=== PATIENT | female | born 1965 | race Two or more races ===

== ENCOUNTER 2024-04-07 06:19 | Day surgery (SDC) | payer BC, OTHER ==
[~2024-04-07] VITALS: Ht 167.6 cm; Wt 64.4 kg
[~2024-04-07 06:19] MED LIST: HYDR-2792 PO; HYDR25TA5 GT; METO5TAB67 PO; PANT40TA2 PO
[2024-04-07] MEDS: HEPARIN SODIUM (PORCINE) 5000 UNITS/ML 1ML VIAL SC ONE (07:00)
[2024-04-07] MEDS: BUPIVACAINE 0.5% MPF INJ 30ML SDV IJ ONE (07:41)
[2024-04-07] MEDS: ceFAZolin 2 GM/D5W100ml 100 ML IV ONE (07:41)
[2024-04-07] MEDS: LIDOCAINE 1% HCL (LOCAL ANESTH.) INJ 20ML MDV ONE (07:41)
[2024-04-07] MEDS ORDERED: HEPARIN SODIUM (PORCINE) 5000 UNITS/ML 1ML VIAL ONE (07:45)
[2024-04-07] MEDS ORDERED: PROPOFOL 10 MG/ML 20 ML IV ONE (07:55)
[2024-04-07] MEDS ORDERED: ONDANSETRON HCL 4 MG/2 ML VIAL ONE (07:55)
[2024-04-07] MEDS ORDERED: DexAMETHasone SOD PHOS 10MG/1ML VIAL INJ ONE (07:55)
[2024-04-07] MEDS ORDERED: LIDOCAINE 1% INJ PF 5ML AMP ONE (07:55)
[2024-04-07] MEDS ORDERED: GLYCOPYRROLATE 0.2 MG/ML 1ML VIAL ONE (07:55)
[2024-04-07] MEDS ORDERED: KETOROLAC TROMETH 30 MG/ML 1ML VIAL ONE (07:55)
[2024-04-07] MEDS ORDERED: KETAMINE 50mg/ML 1ml syringe ONE (08:12)
[2024-04-07] MEDS: HEPARIN 1,000 UNITS/ml 1ML VIAL ONE (08:15)
[2024-04-07] MEDS: HEPARIN SODIUM (PORCINE) 5000 UNITS/ML 1ML VIAL ONE (08:20)
[2024-04-07] MEDS ORDERED: LIDOCAINE 1% HCL (LOCAL ANESTH.) INJ 20ML MDV ONE (08:23)
[2024-04-07 08:36] VITALS: TEMP 97; O2SAT 97
[2024-04-07] MEDS ORDERED: ePHEDrine SULFATE 50 MG/ML AMP IV PRN (08:45)
[2024-04-07] MEDS ORDERED: HYDROmorphone HCL 2 MG/ML VL/or syr IV PRN (08:45)
[2024-04-07] MEDS ORDERED: fentaNYL CITRATE 100 MCG/2 ML VL IV PRN (08:45)
[2024-04-07] MEDS ORDERED: FLUMAZENIL 0.1 MG/ML INJ 10ML MDV IV PRN (08:45)
[2024-04-07] MEDS ORDERED: hydrALAZINE HCL 20 MG/ML VL IV PRN (08:45)
[2024-04-07] MEDS ORDERED: ONDANSETRON HCL 4 MG/2 ML VIAL IV PRN (08:45)
[2024-04-07] MEDS ORDERED: NALOXONE HCL 0.4 MG/ML VIAL IV PRN (08:45)
--- NOTE | 2024-04-07 09:10 | DVH ---
CHEST RADIOGRAPH Indication:RIJV portacath placement Technique: Single frontal view of the chest was obtained COMPARISON: None FINDINGS: Lines and Tubes: Right chest port in satisfactory position. Lungs: Clear Pleura: No effusion. No pneumothorax. Cardiomediastinal contours: Unremarkable Bones: Unremarkable IMPRESSION: No acute disease.
[2024-04-07 09:21] VITALS: BP 167/82; PULSE 71; RESP 14; O2SAT 99
--- NOTE | 2024-04-07 11:28 | DVHOP ---
DATE OF SURGERY: 04/07/2024 PREOPERATIVE DIAGNOSIS: Pancreatic cancer. POSTOPERATIVE DIAGNOSIS: Pancreatic cancer. PROCEDURES: * Right cervical ultrasound interpretation. * Ultrasound-guided right internal jugular vein port-a-cath placement. SURGEON: Jonathan Gutierrez MD COSMETOLOGY PROFESSOR: None. NURSE COOK MANAGER: MONTEZ Gaines. ANESTHESIA: Local and sedation. INTRAOPERATIVE FINDINGS: * Fully patent compressible non-thrombosed right internal jugular vein. * Excellent functioning port-a-cath. No cervical lymphadenopathy. Carotid artery not assessed given it was beyond the scope of the procedure. ESTIMATED BLOOD LOSS: Minimal. INTRAVENOUS FLUIDS: Per anesthesia charting. URINE OUTPUT: Not recorded given Stanford catheter was not inserted. DRAINS: None. IMPLANTS: 8-Czech port-a-cath. COMPLICATIONS: None. Procedure well tolerated and transferred to recovery room in stable condition. INDICATIONS FOR PROCEDURE: The patient is an unfortunate 58-year-old female with recent diagnosis of pancreatic cancer recommended to undergo adjuvant chemoradiation therapy. For this reason, she was recommended to undergo an ultrasound-guided port-a-cath placement. The procedure risks and benefits were explained in a detailed and extensive fashion. All questions were answered. She understood and agreed to proceed. DESCRIPTION OF PROCEDURE: The patient was taken to the operating room. She was placed in the dorsal decubitus position on the operating room table. Once adequate anesthesia was achieved, the right cervical region was assessed under B-mode as well as duplex ultrasound mode. The right internal jugular vein exhibited excellent retrograde flow without evidence of thrombosis and excellent compressibility. There was no cervical lymphadenopathy. The carotid artery was not assessed given it was beyond the scope of the procedure. An 8-Czech power-injectable port-a-cath was selected over the [id number] since these were the only two [id number] available. The cervicothoracic region was widely prepped and draped in usual sterile fashion. The right arm was tucked to the patient's side with adequate positioning as well as padding to prevent any potential injuries. The patient's head was placed on a donut and the head of the bed was extended paying careful attention not to over-extend the neck. The patient's head was rotated towards her left side appropriately exposing the right cervical region. The cervicothoracic region was widely prepped and draped in usual sterile fashion. The patient had received prophylactic antibiotics as well as prophylactic heparin. My attention was directed to the cervical region. Using a sterilely draped ultrasound probe, the right cervical region was assessed under B-mode as well as duplex mode demonstrating excellent compressibility of the right internal jugular vein without evidence of thrombosis and antegrade flow. The carotid artery was not assessed given it is beyond the scope of the procedure. There was no cervical lymphadenopathy. Under ultrasound guidance, the right internal jugular vein was cannulated with single stick. The guidewire was passed into the SVC confirmed with the ultrasound. The needle was removed and the guidewire was secured to the drapes with a hemostat in order to prevent accidental dislodgement. Of note, the patient was placed in Trendelenburg position in order to reduce the risk of emboli before cannulating with the needle. At this time, the projected thoracocervical sac was anesthetized with the previously mentioned anesthetic solution consisting of 1% lidocaine/0.5% Marcaine. Under ultrasound guidance, the area of the projected cannulation site was anesthetized with 1% lidocaine/0.5% Marcaine. Using an 11 blade, an 1 cm incision was made over the projected area of cannulation. Using the access needle from the port-a-cath kit, the right internal jugular vein was cannulated with a single stick under ultrasound guidance. The guidewire was passed through the right internal jugular vein into the SVC, confirmed with the ultrasound. The needle was removed leaving the guidewire in place. The guidewire was secured to the drapes using a hemostat. My attention was then directed towards the thoracic region. The projected thoracocervical catheter tract was anesthetized with the previously mentioned solution. A 2-2.5 cm transverse incision was made over the right thoracic region. The dermis and subcutaneous tissue were incised with electrocautery. A subcutaneous pocket was created inferiorly with electrocautery as well as with blunt dissection. The catheter was assembled to the tunneler device and it was advanced from the thoracic incision externalizing the catheter to the cervical incision. The tunneler was removed from the catheter. The catheter was secured with a hemostat in order to prevent accidental dislodgement. The port-a-cath was assembled to the catheter with its included locking device. It was then flushed with heparin solution to avoid potential air emboli. The port-a-cath was then placed in the pocket and secured to the underlying pectoralis fascia using 2-0 Prolene suture x2. At this time, the catheter was measured using anatomic landmarks and cut at 26.5 cm projecting to reach the distal SVC . At this time, the obturator and sheath were individually flushed, assembled and flushed once again. Once assembled, it was advanced through the wire into the SVC. The guidewire was removed and the obturator was assembled to a syringe and aspirating blood indicating proper placement. At this time, the sheath was removed. The catheter was advanced through the peel-away sheath. The sheath was removed leaving the catheter in place. The port-a-cath was then tested with heparin solution obtaining excellent blood draw and flushing without any difficulties. A final flush was within the catheter using 2500 units of heparin solution. The subcutaneous and dermis were approximated with a running 3-0 Vicryl suture. The skin was closed with 4-0 Monocryl in a subcuticular fashion. The wound was washed and dried. Sterile dressings were applied. The patient tolerated well procedure. There were no complications. She was successfully awakened in the operating room and transferred to recovery room in a stable condition. MD STAN Wright/SHREYAS/FUNMILAYO/BOUCHRA TID: [id number] RECEIPT: [id number]
== END 2024-04-07 09:25 | disposition home or self-care (01) ==
LOC: SUR 06:19
DX: C25.3 Malignant neoplasm of pancreatic duct (principal); I10 Essential (primary) hypertension; Z79.899 Other long term (current) drug therapy; Z90.710 Acquired absence of both cervix and uterus; Z90.49 Acquired absence of other specified parts of digestive tract; Z98.890 Other specified postprocedural states; Z88.8 Allergy status to other drugs, medicaments and biological substances; Z83.42 Family history of familial hypercholesterolemia; Z82.49 Family history of ischemic heart disease and other diseases of the circulatory system
CPT/HCPCS: 36561; 71045; 86850; 86900; 86901; C1788; J1100; J1644; J1885; J2003; J2405; J2704; J3490